=== PATIENT | female | born 2000 ===

== ENCOUNTER 2023-01-15 23:57 | Emergency (ER) | payer SELFPAY ==
[2023-01-16 00:01] VITALS: BP 131/71; PULSE 108; RESP 20; TEMP 38.4; O2SAT 97
--- NOTE | 2023-01-16 00:30 | PC.NURSE ---
patient states she wasnt feeling the vibe here and left
== END 2023-01-16 00:30 | disposition left against medical advice (07) ==
DX: R10.30 Lower abdominal pain, unspecified (principal)
CPT/HCPCS: 99199